=== PATIENT | male | born 1965 | race Caucasian/White ===

== ENCOUNTER 2017-01-17 20:20 | Emergency (ER) | payer OTHER, MEDICAID ==
[~2017-01-17] VITALS: Ht 175.3 cm; Wt 110.0 kg
[~2017-01-17 20:20] MED LIST: AMLO5TAB22 PO; ASPI-130 PO; CIPR500T4 PO; COUM5TAB PO; HYDR-3580 PO; HYDR50TA15 PO; LEVA500T33 PO; METO50TA PO; TERA2CAP3 PO; WARF1TAB PO
[2017-01-17 20:23] VITALS: BP 173/110; PULSE 72; RESP 18; TEMP 97.9; O2SAT 98
[2017-01-17] MEDS ORDERED: ASPIRIN 81 MG CHEW TAB PO ONE (20:30)
[2017-01-17] MEDS ORDERED: SODIUM CHLORIDE 0.9% FLUSH 5 ML FLUSH IVF PRN (20:30)
[2017-01-17] MEDS ORDERED: METO100T PO (20:34)
[2017-01-17] MEDS ORDERED: WARF-21 PO (20:34)
[2017-01-17] MEDS ORDERED: HYDR50TA15 PO (20:34)
[2017-01-17] MEDS ORDERED: AMLO5TAB2 PO (20:34)
[2017-01-17] MEDS ORDERED: ASPI81CH37 CHEW (20:34)
[2017-01-17] MEDS ORDERED: TERA5CAP3 PO (20:34)
[2017-01-17] MEDS ORDERED: WARF-23 PO (20:34)
--- NOTE | 2017-01-17 21:03 | RADRPT ---
EXAM DATE/TIME: 01/17/2017 20:42 [place] COMPARISON: CHEST SINGLE AP, April 20, 2013, 13:48. INDICATIONS : Chest pain. MEDICAL HISTORY : None. SURGICAL HISTORY : None. ENCOUNTER: Initial ACUITY: 1 day PAIN SCORE: 0/10 LOCATION: chest FINDINGS: Right paratracheal and hilar fullness are identified but have no significant change since previous st udy in 2012. Heart is mildly enlarged. Lungs well expanded and clear. CONCLUSION: Stable right paratracheal and right hilar fullness which may represent a vascular anomaly. No evidence of acute cardio pulmonary process. Ken Norton MD on January 17, 2017 at 20:59 Board Certified Radiologist. This report was verified electronically.
[2017-01-17 21:32] LABS: AUTOMATED NEUTROPHIL # 6.3 TH/MM3 (1.8-7.7); BASOPHIL # 0.1 TH/MM3 (0-0.2); BASOPHIL % 0.6 % (0.0-2.0); EOSINOPHIL # 0.5 TH/MM3 (0-0.4); EOSINOPHIL % 5.2 % (0.0-4.0); HEMATOCRIT 50.4 % (39.0-51.0); LYMPH % 18.5 % (9.0-44.0); LYMPHOCYTE # 1.7 TH/MM3 (1.0-4.8); MEAN CELL VOLUME 82.4 FL (80.0-100.0); MEAN CORPUSCULAR HGB CONC 35.2 % (32.0-36.0); MONO % 5.9 % (0.0-8.0); NEUT % 69.8 % (16.0-70.0); PLATELET COUNT 159 TH/MM3 (150-450); RED BLOOD COUNT 6.12 MIL/MM3 (4.50-5.90); RED CELL DISTRIBUTION WIDTH 15.5 % (11.6-17.2)
[2017-01-17 21:34] LABS: APTT (PATIENT) 23.6 SEC (24.3-30.1); INTERNATIONAL NORMALIZED RATIO 1.1 RATIO; PROTHROMBIN TIME - PATIENT 12.7 SEC (9.8-11.6)
[2017-01-17 21:36] LABS: HEMO FLAGS AUTO DIFF
[2017-01-17 21:40] LABS: ANION GAP 10 MEQ/L (5-15); AST (GOT) 22 U/L (15-37); BICARBONATE 21.5 MEQ/L (21.0-32.0); BLOOD UREA NITROGEN 25 MG/DL (7-18); CHLORIDE 106 MEQ/L (98-107); GLOMERULAR FILTRATION RATE 40 ML/MIN (>89); MAGNESIUM 2.1 MG/DL (1.5-2.5); POTASSIUM 3.8 MEQ/L (3.5-5.1); SODIUM (NA) 137 MEQ/L (136-145)
[2017-01-17 21:45] LABS: ALKALINE PHOSPHATASE 122 U/L (45-117); ALT (GPT) 34 U/L (12-78); TOTAL BILIRUBIN ADULT 0.5 MG/DL (0.2-1.0)
--- NOTE | 2017-01-17 21:45 | PD ---
HPI Chief Complaint: Chest Pain Time Seen by Provider: 20:27 Travel History International Travel<30 days: No Contact w/Intl Traveler<30days: No Traveled to known affect area: No History of Present Illness HPI Patient 51-year-old male presents emergency Department with chest tightness on the left side of his chest which was onset approximate hour prior to arrival. Patient states he was having a verbal argument with his son at the time the chest pain started. Patient states the pain and resolved by the time EMS arrived on scene. Patient states he was told he had a minor heart attack in the past but does not report happening. States his strong family history of heart disease in the family. Has not seen a primary care physician in some time. Does have a history of smoking and high blood pressure. Currently he states he feels fine. Symptoms at the time were coming was shortness of breath no nausea. PFSH Past Medical History Atrial Fibrillation: Yes Cardiovascular Problems: Yes (AFIB, HTN, CHF) Congestive Heart Failure: Yes Diminished Hearing: No Genitourinary: Yes Hypertension: Yes Immunizations Current: Yes Past Surgical History Abdominal Surgery: No Cardiac Surgery: No Ear Surgery: No Endocrine Surgery: No Eye Surgery: No Genitourinary Surgery: No Gynecologic Surgery: No Oral Surgery: No Thoracic Surgery: No Other Surgery: Yes Social History Alcohol Use: Yes (RARELY) Tobacco Use: No (QUIT 10 YRS.) Substance Use: No Allergies-Medications (Allergen,Severity, Reaction): Coded Allergies: Spironolactone (Verified Allergy, Severe, Rash, 01/17/17) PT NOT SURE OF ALLERGY Penicillin (Unverified Adverse Reaction, Mild, PT STATES "FREAKED OUT", 01/17/17) Reported Meds & Prescriptions Reported Meds & Active Scripts Active Reported Warfarin 5 Mg Tab 5 Mg PO EVERY OTHER DAY Warfarin 7.5 Mg Tab 7.5 Mg PO EVERY OTHER DAY Terazosin (Terazosin HCl) 5 Mg Cap 5 Mg PO HS Metoprolol Tartrate 100 Mg Tab 100 Mg PO BID Hydralazine (Hydralazine HCl) 50 Mg Tab 50 Mg PO TID Take with a meal Aspirin Low Dose (Aspirin) 81 Mg Chew 81 Mg CHEW DAILY Amlodipine (Amlodipine Besylate) 5 Mg Tab 5 Mg PO DAILY Review of Systems Except as stated in HPI: all other systems reviewed are Neg Physical Exam Narrative GENERAL: Well-developed well-nourished no apparent distress SKIN: Warm and dry. HEAD: Atraumatic. Normocephalic. EYES: Pupils equal and round. No scleral icterus. No injection or drainage. ENT: No nasal bleeding or discharge. Mucous membranes pink and moist. NECK: Trachea midline. No JVD. CARDIOVASCULAR: Regular rate and rhythm. No murmur appreciated. 2+ bilateral equal pulses in all 4 extremities. RESPIRATORY: No accessory muscle use. Clear to auscultation. Breath sounds equal bilaterally. GASTROINTESTINAL: Abdomen soft, non-tender, nondistended. Hepatic and splenic margins not palpable. MUSCULOSKELETAL: No obvious deformities. No clubbing. No cyanosis. No edema. NEUROLOGICAL: Awake and alert. No obvious cranial nerve deficits. Motor grossly within normal limits. Normal speech. PSYCHIATRIC: Appropriate mood and affect; insight and judgment normal. Data Data Last Documented VS Vital Signs Date Time Temp Pulse Resp B/P Pulse Ox O2 Delivery O2 Flow Rate FiO2 01/17/17 23:43 75 20 160/97 98 Room Air 01/17/17 20:23 97.9 Orders Electrocardiogram (01/17/17 20:27) Ckmb (Isoenzyme) Profile (01/17/17 20:27) Complete Blood Count With Diff (01/17/17 20:27) Comprehensive Metabolic Panel (01/17/17 20:27) Magnesium (Mg) (01/17/17 20:27) Prothrombin Time / Inr (Pt) (01/17/17 20:27) Act Partial Throm Time (Ptt) (01/17/17 20:27) Troponin I (01/17/17 20:27) Lipase (01/17/17 20:27) Chest, Single Ap (01/17/17 20:27) Ecg Monitoring (01/17/17 20:27) Bilateral Bp Monitoring (01/17/17 20:27) Iv Access Insert/Monitor (01/17/17 20:27) Oximetry (01/17/17 20:27) Oxygen Administration (01/17/17 20:27) Aspirin Chew (Aspirin Chew) (01/17/17 20:30) Sodium Chloride 0.9% Flush (Ns Flush) (01/17/17 20:30) Troponin I (01/17/17 22:56) Electrocardiogram (01/17/17 ) Labs Laboratory Tests Test 01/17/17 01/17/17 20:50 23:15 White Blood Count 9.0 TH/MM3 Red Blood Count 6.12 MIL/MM3 Hemoglobin 17.7 GM/DL Hematocrit 50.4 % Mean Corpuscular Volume 82.4 FL Mean Corpuscular Hemoglobin 29.0 PG Mean Corpuscular Hemoglobin 35.2 % Concent Red Cell Distribution Width 15.5 % Platelet Count 159 TH/MM3 Mean Platelet Volume 8.8 FL Neutrophils (%) (Auto) 69.8 % Lymphocytes (%) (Auto) 18.5 % Monocytes (%) (Auto) 5.9 % Eosinophils (%) (Auto) 5.2 % Basophils (%) (Auto) 0.6 % Neutrophils # (Auto) 6.3 TH/MM3 Lymphocytes # (Auto) 1.7 TH/MM3 Monocytes # (Auto) 0.5 TH/MM3 Eosinophils # (Auto) 0.5 TH/MM3 Basophils # (Auto) 0.1 TH/MM3 CBC Comment AUTO DIFF Differential Comment AUTO DIFF CONFIRMED Platelet Estimate NORMAL Platelet Morphology Comment NORMAL Prothrombin Time 12.7 SEC Prothromb Time International 1.1 RATIO Ratio Activated Partial 23.6 SEC Thromboplast Time Sodium Level 137 MEQ/L Potassium Level 3.8 MEQ/L Chloride Level 106 MEQ/L Carbon Dioxide Level 21.5 MEQ/L Anion Gap 10 MEQ/L Blood Urea Nitrogen 25 MG/DL Creatinine 1.81 MG/DL Estimat Glomerular Filtration 40 ML/MIN Rate Random Glucose 115 MG/DL Calcium Level 8.8 MG/DL Magnesium Level 2.1 MG/DL Total Bilirubin 0.5 MG/DL Aspartate Amino Transf 22 U/L (AST/SGOT) Alanine Aminotransferase 34 U/L (ALT/SGPT) Alkaline Phosphatase 122 U/L Total Creatine Kinase 96 U/L Troponin I LESS THAN 0.02 0.03 NG/ML NG/ML Total Protein 8.1 GM/DL Albumin 3.4 GM/DL Lipase 152 U/L [facility] Medical Decision Making Medical Screen Exam Complete: Yes Emergency Medical Condition: Yes Interpretation(s) EKG shows atrial fibrillation no acute ST-T changes. Left [place] deviation and poor R-wave progression. This abnormal EKG. comparison to 04/20/2013, previously inverted T waves in V5 and V6 have now reverted to normal axis. Differential Diagnosis ACS, AMI, Stress, PNA unlikely, PE unlikely. Narrative Course Patient roomed in ED, chest pain onset approximately 1 hour [employer]. Now resolved. Has some typical descriptors and risk factors. My recommendation for him after initial troponin, EKG was for him to stay in [facility] and have stress test. Patient states the pain "was not my heart". I have explained that it is difficult to determine but i have high clinicl suspicion that this could be his heart as stress can bring on anginal symptoms. He initially is adamant that it is not his heart. With some discussion he understands that my assessment is chest pain which could be due to CAD. He understands that my initial workup is not adequate to exclude significant CAD. He understands that leaving without stress test could cause him to not only suffer sudden cardiac but could also lead to significant and permanent disability including risks of (but not limited to), kidney failure, brain damage, respiratory failure, need for long term care pharmacist ventilation. He verbalized understanding of these risks and still wishes to leave AMA. I have asked him to sign a formal AMA paper and he politely did. Patient did agree for a second troponin and EKG which are negative/unchanged. Diagnosis Primary Impression: Chest pain Qualified Code: R07.9 - Chest pain, unspecified type Referrals: Joslyn Rogers MD Disposition: 07 AGAINST MEDICAL ADVICE Condition: Stable Levi Stover MD Jan 17, 2017 21:45
[2017-01-17 22:12] LABS: CREATINE KINASE 96 U/L (39-308)
[2017-01-17 22:20] LABS: PLATELET ESTIMATE SMEAR NORMAL (NORMAL); PLATELET MORPHOLOGY NORMAL (NORMAL); SCAN/DIFF AUTO DIFF CONFIRMED
[2017-01-17 23:43] VITALS: BP 160/97; PULSE 75; RESP 20; O2SAT 98
--- NOTE | 2017-01-18 19:41 | EKG ---
Date Performed: 01/17/2017 Time Performed: 21:31:22 PTAGE: 51 years EKG: ATRIAL FIBRILLATION MODERATE INTRAVENTRICULAR CONDUCTION DELAY MODERATE VOLTAGE CRITERIA FO R LVH, CONSIDER NORMAL VARIANT NONSPECIFIC ST & T-WAVE ABNORMALITY Since previous tracing, no signifi cant change noted ABNORMAL ECG PREVIOUS TRACING : 04/20/2013 12.55 DOCTOR: Francis Nuno Interpretating Date/Time 01/18/2017 19:40:14
--- NOTE | 2017-01-18 19:42 | EKG ---
Date Performed: 01/17/2017 Time Performed: 23:08:19 PTAGE: 51 years EKG: ATRIAL FIBRILLATION MARKED LEFT AXIS DEVIATION POSSIBLE LEFT VENTRICULAR HYPERTROPHY NONSPE CIFIC T-WAVE ABNORMALITY Since previous tracing, no significant change noted ABNORMAL ECG PREVIOUS TRACING : 01/17/2017 21.31 DOCTOR: Francis Nuno Interpretating Date/Time 01/18/2017 19:40:25
== END 2017-01-18 00:41 | disposition left against medical advice (07) ==
LOC: NEDAMB 20:20 → NEPC 01-18 00:41
DX: R07.89 Other chest pain (principal); I48.91 Unspecified atrial fibrillation; I10 Essential (primary) hypertension; I50.9 Heart failure, unspecified; Z87.891 Personal history of nicotine dependence
CPT/HCPCS: 71010; 80053; 82550; 83690; 83735; 84484; 85025; 85610; 85730; 93005